=== PATIENT | male | born 1990 | race American Indian/Alaskan Native ===

== ENCOUNTER 2017-01-30 12:43 | Emergency (ER) | payer BC ==
[2017-01-30 13:10] VITALS: BP 134/79
--- NOTE | 2017-01-30 13:41 | XRay Report ---
Right shoulder 3 views: History: 18 from recent injury. Findings: The a.c. joint and the glenohumeral joint and the articular surfaces appears unremarkable. No evidence of fracture, dislocation or soft tissue calcification. Impression: Essentially negative right shoulder.
--- NOTE | 2017-01-30 14:58 | Emergency Department Report ---
ED Upper Extremity Inj HPI - General Chief Complaint: Extremity Injury, Upper Stated Complaint: RIGHT SHOULDER PAIN Time Seen by Provider: 01/30/17 14:48 Source: patient Mode of arrival: Ambulatory Limitations: No Limitations - History of Present Illness Initial Comments: 27-year-old male comes in for right shoulder injury yesterday around 8 PM. Patient reports he was jumping in a [employer]oun[employer] with his kids. Patient reports that he fell on his right shoulder and felt something tear. He now comes in with complaint of right shoulder not able to lift his arm able to move it front to back but not able to elevate. Patient reports that he did take Aleve yesterday and felt somewhat better the pain is still persistent around a 7 out of 10. Patient reports no past medical history he currently takes no medications. MD Complaint: Injury to:: right, shoulder -: hour(s) (12) Other Injuries: none Handedness: left Place: home Severity scale (0 -10): 7 Improves With: medication Worsens With: movement of extremity Context: fall Associated Symptoms: denies other symptoms Treatments Prior to Arrival: NSAIDS - Related Data Previous Rx's Medication Instructions Recorded Last Taken Type Naproxen [Naprosyn TAB] 500 mg PO BID #30 tablet 01/30/17 Unknown Rx methOCARBAMOL [Robaxin TAB] 500 mg PO BID #30 tab 01/30/17 Unknown Rx Allergies Allergy/AdvReac Type Severity Reaction Status Date / Time aspirin AdvReac Nausea Verified 01/30/17 13:09 ED Review of Systems ROS: Stated complaint: RIGHT SHOULDER PAIN Other details as noted in HPI Musculoskeletal: arthralgia ED Past Medical Hx - Past Medical History Previous Medical History?: No - Surgical History Past Surgical History?: No - Social History Smoking Status: Never Smoker Substance Use Type: None - Medications Home Medications: Home Medications Medication Instructions Recorded Confirmed Last Taken Type Naproxen [Naprosyn TAB] 500 mg PO BID #30 tablet 01/30/17 Unknown Rx methOCARBAMOL [Robaxin TAB] 500 mg PO BID #30 tab 01/30/17 Unknown Rx ED Physical Exam - General Limitations: No Limitations General appearance: alert, in no apparent distress - Head Head exam: Present: atraumatic - Eye Eye exam: Present: normal appearance - ENT ENT exam: Present: normal exam, mucous membranes moist - Neck Neck exam: Present: normal inspection - Expanded Upper Extremity Exam Left Shoulder Exam: Present: normal inspection, other (pain elicited with elevation/ abduction). Absent: full ROM, tenderness, deformity, dislocation, tenderness over AC joint Upper Arm exam: Present: normal inspection, full ROM Elbow exam: Present: normal inspection, full ROM Forearm Wrist exam: Present: normal inspection, full ROM Hand Wrist exam: Present: normal inspection, full ROM Neuro motor exam: Present: wrist extension intact, thumb opposition intact, thumb IP flexion intact Neurosensory exam: Present: radial nerve intact, ulnar nerve intact, median nerve intact Vascular: Present: vascular compromise ED Course Vital Signs 01/30/17 01/30/17 13:07 15:19 Temperature 98.4 F Pulse Rate 72 Respiratory 18 18 Rate Blood Pressure 134/79 O2 Sat by Pulse 99 Oximetry ED Medical Decision Making - Radiology Data Radiology results: report reviewed, image reviewed Findings: The a.c. joint and the glenohumeral joint and the articular surfaces appears unremarkable. No evidence of fracture, dislocation or soft tissue calcification. Impression: Essentially negative right shoulder. Transcribed By: PTP Dictated By: PHIL FRANKLIN MD Electronically Authenticated By: PHIL FRANKLIN MD Signed Date/Time: 01/30/17 1333 - Medical Decision Making Patient's been evaluated with his provider fast track. Discussed with patient that his x-ray of his shoulder was essentially negative. Discussed with patient that we will have him follow up with orthopedic for possible MRI. Given patient Percocet for pain control we will discharge patient on the naproxen and Robaxin. We will give patient a week off work and he is able to feed orthopedics. Patient verbalized understanding. Critical care attestation.: If time is entered above; I have spent that time in minutes in the direct care of this critically ill patient, excluding procedure time. ED Disposition Clinical Impression: Shoulder injury Qualifiers: Encounter type: initial encounter Laterality: right Qualified Code(s): S49.91XA - Unspecified injury of right shoulder and upper arm, initial encounter Disposition: DISCHARGED TO HOME OR SELFCARE Is pt being admited?: No Does the pt Need Aspirin: No Condition: Stable Instructions: Rotator Cuff Injury (ED), Shoulder Sprain (ED) Additional Instructions: Please follow up with orthopedics. Consider an MRI of her right shoulder. Take pain medication as prescribed. I have listed several orthopedics for your convenience. Prescriptions: methOCARBAMOL [Robaxin TAB] 500 mg PO BID #30 tab Naproxen [Naprosyn TAB] 500 mg PO BID #30 tablet Referrals: NIAL PAYNE MD [Staff Physician] - 3-5 Days [facility] [Provider Group] - 3-5 Days [facility] [Provider Group] - 3-5 Days Forms: Work/School Release Form(ED)
[2017-01-30] MEDS ORDERED: PERCOCET 5/325 PO ONE (15:06)
== END 2017-01-30 15:49 | disposition home or self-care (01) ==
LOC: ED 12:43
DX: S49.91XA Unspecified injury of right shoulder and upper arm, initial encounter (principal); W17.89XA Other fall from one level to another, initial encounter; Y93.9 Activity, unspecified; Y92.9 Unspecified place or not applicable; Y99.9 Unspecified external cause status
CPT/HCPCS: 99283